=== PATIENT | female | born 1950 | race Caucasian/White ===

== ENCOUNTER 2020-02-19 07:30 | Inpatient (IN) | payer BC, MEDICARE ==
[2020-02-12 15:15] LABS: BASOPHILS # (AUTO) 0.1 X10'3 (0-0.2); BASOPHILS % (AUTO) 0.7 % (0-1); EOSINOPHILS # (AUTO) 0.1 X10'3 (0-0.9); EOSINOPHILS % (AUTO) 1.5 % (0-6); LYMPHOCYTES # (AUTO) 2.1 X10'3 (1.1-4.8); LYMPHOCYTES % (AUTO) 22.9 % (21-51); MEAN CORPUSCULAR HEMOGLOBIN 29.4 PG (27.0-31.0); MEAN CORPUSCULAR HGB CONC 32.8 g/dL (33.0-36.5); MEAN CORPUSCULAR VOLUME 89.7 FL (78-98); MEAN PLATELET VOLUME 9.4 FL (7.4-10.4); MONOCYTES # (AUTO) 0.7 X10'3 (0-0.9); MONOCYTES % (AUTO) 8.2 % (2-12); NEUTROPHILS % (AUTO) 66.7 % (42-75); PRE OP HEMATOCRIT 40.5 % (35.0-45.0); PRE OP HEMOGLOBIN 13.3 g/dL (12.0-16.0); PRE OP PLATELET COUNT 218 X10'3 (140-440); RED BLOOD COUNT 4.52 X10'6 (4.20-5.60); RED CELL DISTRIBUTION WIDTH 13.7 % (11.5-14.5)
[2020-02-12 15:37] LABS: ALBUMIN 4.1 G/DL (3.4-5.0); ALBUMIN/GLOBULIN RATIO 1.1 (1.1-1.5); ALKALINE PHOSPHATASE 86 IU/L (46-116); BLOOD UREA NITROGEN 18 MG/DL (7-18); BUN/CREATININE RATIO 18.8 (6.6-38.0); CALCIUM 9.8 MG/DL (8.5-10.1); CHLORIDE 106 MMOL/L (99-107); CREATININE 0.96 MG/DL (0.40-0.90); PRE OP ALT 24 U/L (30-65); PRE OP ANION GAP 7 (8-16); PRE OP AST 19 U/L (10-37); PRE OP BILIRUB, TOTAL 0.3 MG/DL (0.0-1.0); PRE OP GLUCOSE 89 MG/DL (70-104); PRE OP POTASSIUM 4.5 MMOL/L (3.4-5.1); PRE OP SODIUM 143 MMOL/L (135-145); TOTAL CARBON DIOXIDE 30.2 MMOL/L (24-32); TOTAL PROTEIN 7.7 G/DL (6.4-8.2); eGFR 57 ML/MIN
[~2020-02-19] VITALS: Ht 174 cm; Wt 74.0 kg
[2020-02-19] VITALS (14 sets, daily range): BP systolic 118–164; BP diastolic 67–84
[~2020-02-19 07:30] MED LIST: ALEN70TA37 PO; BUPR100T16 PO; CALC-1197 PO; CELE-85 PO; CHOL400T8 PO; CYAN250010 PO; FERR236T3 PO; LEVO112T39 PO; LOSA100T57 PO; MILK1CAP3 PO; MULT-1085 PO; SUVO15TA PO; ceFAZolin 2gm in dextrose, iso 50 ML IV ONE; famotidine 20mg tablet PO ONE; ringers solution, lacted 1,000 ML IV SCH; tranexamic acid inj. 730 MG in normal saline 100ml IV soln 100 ML IV ONE; tranexamic acid inj. 730 MG in normal saline 100ml IV soln 92.7 ML IV ONE; vancomycin 1,500 MG in NS 300ml IV soln IV ONE
[2020-02-19] MEDS ORDERED: ketorolac trometh. 30mg/ml inj. ONE (10:23)
[2020-02-19] MEDS ORDERED: ROPIVAcaine 0.5% (5mg/ml) 30ml vial ONE ×2 (10:23→12:59)
[2020-02-19] MEDS ORDERED: fentaNYL/PF 50MCG/1 ML 2ML syringe ONE (11:45)
[2020-02-19] MEDS ORDERED: midazolam 2 mg/2 ml injection ONE (11:49)
[2020-02-19] MEDS ORDERED: sevoflurane 250ml liquid IH ONE (12:04)
[2020-02-19] MEDS ORDERED: propofol inj 20 ML IV ONE (12:59)
[2020-02-19] MEDS ORDERED: LIDOcaine 2% (20mg/ml) 5ml vial ONE (12:59)
[2020-02-19] MEDS ORDERED: LIDOcaine 1%/PF 5ML 10 MG/ML VIAL ONE ×2 (12:59→13:01)
[2020-02-19] MEDS ORDERED: ePHEDrine 50MG/ML INJ. ONE (13:00)
[2020-02-19] MEDS ORDERED: rocuronium 10mg/ml inj IV ONE (13:00)
[2020-02-19] MEDS ORDERED: LIDOcaine 2% 5ml jelly ONE (13:01)
[2020-02-19] MEDS ORDERED: 0.9 % SODIUM CHLORIDE 10 ML VIAL ONE (13:01)
[2020-02-19] MEDS ORDERED: dexamethasone sod phosphate 4mg/ml inj. ONE (13:18)
[2020-02-19] MEDS ORDERED: ondansetron/PF 4mg/2ml inj ONE (13:18)
[2020-02-19] MEDS ORDERED: ROPIVAcaine 0.2%/PF PUMP/bolus 550 ML INTERSCALE SCH (13:48)
[2020-02-19] MEDS ORDERED: ringers solution, lacted 1,000 ML IV SCH (13:48)
[2020-02-19] MEDS ORDERED: morphine 4 MG/ML inj SYRINge IV PRN (13:50)
[2020-02-19] MEDS ORDERED: acetaminophen 1,000mg/100ml IV 100 ML IV PRN (13:50)
[2020-02-19] MEDS ORDERED: meperidine/PF 25mg/ml syringe IV PRN (13:50)
[2020-02-19] MEDS ORDERED: ROPIVAcaine 0.2% (10 MG/5 ML) BOLUS INJECTION INTERSCALE PRN (13:50)
[2020-02-19] MEDS ORDERED: labetalol 20mg/4ml (5mg/ml) syringe IV PRN (13:50)
[2020-02-19] MEDS ORDERED: HYDROmorphone inj. 0.5 MG/0.5 ML DISP.SYRIN IV PRN ×3 (13:50→15:10)
[2020-02-19] MEDS ORDERED: hydrALAZINE 20mg/ml inj. IV PRN (13:50)
[2020-02-19] MEDS ORDERED: proCHLORperazine 10 MG/2 ml inj IV PRN (13:50)
[2020-02-19] MEDS ORDERED: morphine 2 MG/ML inj. syringe IV PRN (13:50)
[2020-02-19] MEDS ORDERED: ondansetron/PF 4mg/2ml inj IV PRN (13:50)
[2020-02-19] MEDS ORDERED: neostigmine methylsulfate 1 MG/ML 10ml vial ONE (14:43)
[2020-02-19] MEDS ORDERED: glycopyrrolate 0.2mg/ml inj ONE (14:43)
--- NOTE | 2020-02-19 14:55 | NUR ---
Received from OR via BED, accompanied by Anesthesiologist DR ALLRED and report given by Anesthesiolgist. PATIENT A&OX4, DENIES PAIN, V/S WNL, NEUROVASCULAR CHECKS INTACT, 18G PIV LUE, SCD ON, DRESSING TO RIGHT SHOULDER CDI WITH SLING AND ON QUE BALL AT 4ML/HR WITH ICEBAG APPLIED
--- NOTE | 2020-02-19 15:00 | NUR ---
Patient arrived to Ortho Floor
[2020-02-19] MEDS ORDERED: diphenhydrAMINE 25mg capsule PO PRN ×2 (15:10)
[2020-02-19] MEDS ORDERED: bisacodyl 10mg suppository rectal RC PRN (15:10)
[2020-02-19] MEDS ORDERED: HYDROmorphone 1 mg/ml syringe IV PRN (15:10)
[2020-02-19] MEDS ORDERED: acetaminophen 325mg tablet PO PRN (15:10)
[2020-02-19] MEDS ORDERED: oxyCODONE IR 5mg (immed. release) tablet PO PRN ×2 (15:10)
[2020-02-19] MEDS ORDERED: magnesium hydroxide 30ml (MOM) UD suspension PO PRN (15:10)
[2020-02-19] MEDS ORDERED: non-formulary drug (Alendronate Sodium 1 TAB) PO SCH (15:10)
--- NOTE | 2020-02-19 15:55 | NUR ---
PATIENT A&OX4, DENIES PAIN, V/S WNL, NEUROVASCULAR CHECKS INTACT, 18G PIV LUE, SCD ON, DRESSING TO RIGHT SHOULDER CDI WITH SLING AND ON QUE BALL AT 4ML/HR WITH ICEBAG APPLIED. PATIENT TAKEN TO 4014A WITH ALL BELONGINGS AND HOOKED UP TO MONITORS IN ROOM AND REPORT GIVEN TO RN WHO HAS TAKEN OVER PATIENT CARE.
--- NOTE | 2020-02-19 17:51 | NUR ---
promotional table spacer PAGER ID: [phone] MESSAGE: [id number] RILEY LYONS metabolic acidosis needs to go to [facility] on bipap. [facility] #[id number] Addendum: 02/19/20 at 1752 by Bruno Horton RN WRONG PATIENT
[2020-02-19] MEDS: ondansetron/PF 4mg/2ml inj IV PRN (17:56)
[2020-02-19] MEDS ORDERED: tranexamic acid inj. 740 MG in normal saline 100ml IV soln 100 ML IV ONE (18:30)
--- NOTE | 2020-02-19 18:34 | NUR ---
Patient in room ORTHO 4014. I have received report from Bruno CORDOVA and had the opportunity to ask questions and assume patient care.
[2020-02-19] MEDS: acetaminophen 325mg tablet PO SCH (19:31)
[2020-02-19] MEDS: potassium cl 20mEq in 1/2 NS 1,000 ML IV SCH ×2 (19:31→23:09)
[2020-02-19] MEDS: celeCOXIB 100mg capsule PO SCH (19:31)
[2020-02-19] MEDS: ceFAZolin 1GM/D5W- ADD-VANTAGE 50 ML IV SCH ×2 (19:32→23:49)
[2020-02-19] MEDS ORDERED: vancomycin/NS 1 GM ADD-VANTAGE 250 ML IV SCH (20:00)
[2020-02-19] MEDS ORDERED: losartan 50mg tablet PO SCH (21:00)
[2020-02-19] MEDS ORDERED: sennosides 8.6mg tablet PO SCH (21:00)
[2020-02-19] MEDS ORDERED: zolpidem 5mg tablet PO SCH (21:00)
[2020-02-20 02:00] VITALS: BP 102/52
[2020-02-20] MEDS: acetaminophen 325mg tablet PO SCH ×2 (02:25→07:53)
[2020-02-20] MEDS: ondansetron/PF 4mg/2ml inj IV PRN (02:52)
[2020-02-20 06:00] VITALS: BP 112/54
[2020-02-20 06:41] LABS: BASOPHILS % (AUTO) 0.2 % (0-1); EOSINOPHILS % (AUTO) 0 % (0-6); HEMOGLOBIN 10.3 g/dl (12.0-16.0); LYMPHOCYTES % (AUTO) 6.4 % (21-51); MEAN CORPUSCULAR HEMOGLOBIN 29.9 PG (27.0-31.0); MEAN CORPUSCULAR HGB CONC 33.2 g/dL (33.0-36.5); MEAN CORPUSCULAR VOLUME 90.1 FL (78-98); MEAN PLATELET VOLUME 9.7 FL (7.4-10.4); MONOCYTES # (AUTO) 0.9 X10'3 (0-0.9); MONOCYTES % (AUTO) 5.8 % (2-12); NEUTROPHILS # (AUTO) 14.3 X10'3 (1.8-7.7); NEUTROPHILS % (AUTO) 87.6 % (42-75); PLATELET COUNT 162 X10'3 (140-440); RED BLOOD COUNT 3.44 X10'6 (4.20-5.60); RED CELL DISTRIBUTION WIDTH 13.4 % (11.5-14.5); WHITE BLOOD COUNT 16.3 X10'3 (4.5-11.0)
--- NOTE | 2020-02-20 06:42 | NUR ---
Problems reprioritized. Patient report given, questions answered & plan of care reviewed with Patrica CORDOVA.
--- NOTE | 2020-02-20 06:45 | NUR ---
Patient in room ORTHO 4013B. I have received report from ART BACK and had the opportunity to ask questions and assume patient care.
[2020-02-20 07:05] LABS: ANION GAP 8 (8-16); CHLORIDE 105 MMOL/L (99-107); POTASSIUM 4.7 MMOL/L (3.5-5.1); SODIUM 136 MMOL/L (135-145); TOTAL CARBON DIOXIDE 23.2 MMOL/L (24-32)
[2020-02-20] MEDS: potassium cl 20mEq in 1/2 NS 1,000 ML IV SCH (07:09)
[2020-02-20] MEDS: celeCOXIB 100mg capsule PO SCH (07:52)
[2020-02-20] MEDS ORDERED: levoTHYROXINE 112mcg tablet PO SCH (08:00)
[2020-02-20] MEDS ORDERED: multivitamins, therapeutics tablet PO SCH (08:00)
[2020-02-20] MEDS ORDERED: buPROPion 100mg tablet PO SCH (08:00)
[2020-02-20] MEDS ORDERED: aspirin 325mg tablet PO SCH (08:30)
[2020-02-20] MEDS ORDERED: OXYC-150 PO (09:27)
[2020-02-20] MEDS ORDERED: ASPI-1 PO (09:27)
[2020-02-20] MEDS ORDERED: ONQPUMP ADDCANAL (09:27)
[2020-02-20 10:00] VITALS: BP 101/48
--- NOTE | 2020-02-20 12:58 | NUR ---
DC INSTRUCTIONS AND RX GIVEN TO PT, IV WAS REMOVED WITH NO COMPLICATIONS, BELONGINGS BAGGED UP ALONG WITH POWDER PACKS X2, ASSISTED PT IN DRESSING. WHEELED DOWN TO FRIEND IN PRIVATE VEHICLE IN STABLE CONDITION.
[2020-02-21] MEDS ORDERED: acetaminophen 325mg tablet PO PRN (15:10)
== END 2020-02-20 12:05 | disposition home health service (06) | DRG 483 ==
LOC: UNDOADMIN 08:06 → PAS IN 08:06 → EDUNIT# 09:15 → EDSTATUS 09:15 → PAS IN 15:09 → ORTHO 4S 16:10 → PAS IN 16:10 → ORTHO 4S 16:50
PROVIDERS: ADMIT Orthopaedic Surgery; ATTEND Orthopaedic Surgery
PROC: 0LS30ZZ Reposition Right Upper Arm Tendon, Open Approach (ICD-10-PCS; 2020-02-19)
PROC: 3E0T3BZ Introduction of Anesthetic Agent into Peripheral Nerves and Plexi, Percutaneous Approach (ICD-10-PCS; 2020-02-19)
PROC: 0RRJ0JZ Replacement of Right Shoulder Joint with Synthetic Substitute, Open Approach (ICD-10-PCS; principal; 2020-02-19 12:04)
DX: M19.011 Primary osteoarthritis, right shoulder (principal); D62 Acute posthemorrhagic anemia; F32.9 Major depressive disorder, single episode, unspecified; E03.9 Hypothyroidism, unspecified; I10 Essential (primary) hypertension; M75.21 Bicipital tendinitis, right shoulder; G89.29 Other chronic pain; M65.811 Other synovitis and tenosynovitis, right shoulder; Z88.0 Allergy status to penicillin; Z79.899 Other long term (current) drug therapy
CPT/HCPCS: Z7506; Z7508; 36415; 80051; 80053; 82948; 84443; 85025; 87081; 97110; 97116; 97162; 97530; A4565; A4618; A7000; C1713; C1776; G0378; J0690; J1100; J1885; J2001; J2250; J2405; J2704; J2710; J2795; J3010; J3370; J3480; J3490; J7040; J7120